=== PATIENT | male | born 1945 | race Caucasian/White ===

== ENCOUNTER 2017-07-17 10:53 | Emergency (ER) | payer MEDICARE, OTHER ==
[~2017-07-17] VITALS: Ht 160 cm; Wt 87.0 kg
[~2017-07-17 10:53] MED LIST: ATEN-51 PO; BENA20TA48 PO; CAR120SR PO; CHOLESTEROL MED PO; DOXA2TAB52 PO; IBUP800T25 PO
[2017-07-17 10:59] VITALS: Ht 160 cm; Wt 87.0 kg
[2017-07-17] MEDS ORDERED: IBUPROFEN 800 MG TAB PO ONE (12:00)
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
[2017-07-17] MEDS ORDERED: IBUP800T25 PO (13:17)
[2017-07-17] MEDS ORDERED: CYCL-319 PO (13:17)
[2017-07-17 13:42] VITALS: BP 163/97; PULSE 71; RESP 18; TEMP 97.5
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
== END 2017-07-17 13:45 | disposition home or self-care (01) ==
LOC: E/R 10:53
DX: S13.4XXA Sprain of ligaments of cervical spine, initial encounter (principal); S33.9XXA Sprain of unspecified parts of lumbar spine and pelvis, initial encounter; I10 Essential (primary) hypertension; R40.2142 Coma scale, eyes open, spontaneous, at arrival to emergency department; R40.2252 Coma scale, best verbal response, oriented, at arrival to emergency department; R40.2362 Coma scale, best motor response, obeys commands, at arrival to emergency department; R51 Headache; V49.49XA Driver injured in collision with other motor vehicles in traffic accident, initial encounter
CPT/HCPCS: 70450; 71010; 72100; 72125

== ENCOUNTER 2017-08-02 12:07 | Emergency (ER) | payer MEDICARE, OTHER ==
[~2017-08-02] VITALS: Ht 170.2 cm; Wt 85.0 kg
[~2017-08-02 12:07] MED LIST changes: +CYCL-319 PO
[2017-08-02 12:13] VITALS: Ht 170.2 cm; Wt 85.0 kg
[2017-08-02] MEDS ORDERED: DIPHTH/TET/ACEL PERTUSS (ADULT) 0.5 ML VIAL IM* ONE (12:30)
[2017-08-02] MEDS ORDERED: LIDOCAINE 1% (MDV) 20 ML INJ SC ONE (12:30)
[2017-08-02] MEDS ORDERED: IBUPROFEN 600 MG TAB PO ONE (12:30)
[2017-08-02] MEDS ORDERED: CEPH-443 PO (12:51)
[2017-08-02] MEDS ORDERED: IBUP-1542 PO (12:51)
--- NOTE | 2017-08-02 12:53 | ERD ---
ER Documentation Chief Complaint Date/Time DATE: 08/02/17 TIME: 12:51 Chief Complaint metal splinter underneath right 5th finger nail HPI 71-year-old male presents with a splinter under his right fifth finger nail from possibly a wire brush. Denies any restricted range of motion weakness or redness or fevers. His tetanus is not up-to-date. ROS All systems reviewed and are negative except as per history of present illness. Medications Home Meds Active Scripts Ibuprofen* (Motrin*) 600 Mg Tab, 600 MG PO Q6, #15 TAB Prov:RIVER DIAZ MD 08/02/17 Cephalexin* (Keflex*) 500 Mg Capsule, 500 MG PO QID for 5 Days, CAP Prov:RIVER DIAZ MD 08/02/17 Cyclobenzaprine Hcl* (Cyclobenzaprine Hcl*) 10 Mg Tablet, 10 MG PO TID, #15 TAB Prov:JOSEY NÚÑEZ 07/17/17 Ibuprofen* (Motrin*) 800 Mg Tab, 800 MG PO Q6H Y for PAIN AND OR ELEVATED TEMP, #30 TAB Prov:JOSEY NÚÑEZ 07/17/17 Ibuprofen* (Motrin*) 800 Mg Tab, 800 MG PO Q6H Y for PAIN AND OR ELEVATED TEMP, #30 TAB Prov:MARIA FERNANDA MIRELES MD 07/21/16 Reported Medications [Cholesterol Med] No Conflict Check, PO 05/27/16 Doxazosin* (CARDURA*) 2 Mg Tablet, 2 MG PO DAILY 02/08/13 Benazepril Hcl* (Benazepril Hcl*) 20 Mg Tablet, 20 MG PO DAILY 02/08/13 Atenolol* (Atenolol*) 25 Mg Tablet, 25 MG PO DAILY 02/08/13 Diltiazem Hcl (Diltiazem) 120 Mg Capsr, 120 MG PO DAILY 02/08/13 Allergies Allergies: Coded Allergies: No Known Allergies (Verified Allergy, Unknown, 11/08/13) PMhx/Soc History of Surgery: Yes (TURP, HERNIA) Anesthesia Reaction: No Hx Neurological Disorder: No Hx Respiratory Disorders: Yes (CHRONIC BRONCHITIS) Hx Cardiac Disorders: Yes (HTN, HIGH CHOLESTEROL) Hx Psychiatric Problems: No Hx Miscellaneous Medical Probl: No Hx Alcohol Use: No Hx Substance Use: No Hx Tobacco Use: Yes (1PPD) Smoking Status: Current every day smoker Physical Exam Vitals Vital Signs Date Time Temp Pulse Resp B/P Pulse Ox O2 Delivery O2 Flow Rate FiO2 08/02/17 12:13 98.3 71 16 144/71 95 Physical Exam Const: []Is alert, [id number]. Head: Atraumatic Eyes: Normal Conjunctiva ENT: Normal External Ears, Nose and Mouth. Neck: Full range of motion..~ No meningismus. Resp: Clear to auscultation bilaterally Cardio: Regular rate and rhythm, no murmurs Abd: Soft, non tender, non distended. Normal bowel sounds Skin: No petechiae or rashes Back: No midline or flank tenderness Ext: No cyanosis, or edema. There is a splinter underneath the right fifth finger now extending to the lunate. There is no erythema, discharge, deformities, restricted range of motion or weakness. Neur: Awake and alert Psych: Normal Mood and Affect Results 24 hrs Current Medications Medications (Trade) Dose Ordered Sig/Hannah Route PRN Reason Start Time Stop Time Status Last Admin Dose Admin Ibuprofen (Motrin) 600 mg ONCE ONCE PO 08/02/17 12:30 08/02/17 12:31 DC 08/02/17 12:32 Lidocaine (Xylocaine 1% (Mdv) 20 ml) 20 ml ONCE ONCE SC 08/02/17 12:30 08/02/17 12:31 DC Diphtheria/ Tetanus/Acell Pertussis (Adacel) 0.5 ml ONCE ONCE IM* 08/02/17 12:30 08/02/17 12:31 DC 08/02/17 12:43 Cephalexin (Keflex) 500 mg ONCE ONCE PO 08/02/17 13:00 08/02/17 13:01 Procedures/MDM Patient was given a tetanus booster. Patient was given ibuprofen and Keflex. Procedure note-right fifth digit was prepped with Betadine. 3 cc of lidocaine was used to perform a digital block. Using clamps splint was removed from underneath the right fifth fingernail. Patient tolerated procedure well and wound was dressed. Patient was discharged home instructions for wound check in 2 days, sooner for redness, fevers, new worsening symptoms. There is no current evidence of infection, appreciable retained foreign body, fracture, dislocation. Departure Diagnosis: Primary Impression: Splinter Additional Impression: Nail problem Condition: Stable Patient Instructions: Splinter Removal Additional Instructions: Recheck for redness, swelling, new symptoms. RIVER DIAZ MD Aug 02, 2017 12:53
[2017-08-02] MEDS ORDERED: CEPHALEXIN 500 MG CAP PO ONE (13:00)
== END 2017-08-02 13:19 | disposition home or self-care (01) ==
LOC: FTE 12:07
DX: S60.456A Superficial foreign body of right little finger, initial encounter (principal); I10 Essential (primary) hypertension; F17.210 Nicotine dependence, cigarettes, uncomplicated; W45.8XXA Other foreign body or object entering through skin, initial encounter; Y92.9 Unspecified place or not applicable; Z23 Encounter for immunization
CPT/HCPCS: 90471; 90715

== ENCOUNTER 2017-08-04 10:28 | Emergency (ER) | payer MEDICARE, OTHER ==
[~2017-08-04] VITALS: Ht 162.6 cm; Wt 80.0 kg
[~2017-08-04 10:28] MED LIST changes: +CEPH-443 PO; +IBUP-1542 PO
[2017-08-04 10:34] VITALS: Ht 162.6 cm; Wt 80.0 kg
== END 2017-08-04 12:06 | disposition left against medical advice (07) ==
LOC: FTE 10:28
DX: Z53.21 Procedure and treatment not carried out due to patient leaving prior to being seen by health care provider (principal)

== ENCOUNTER 2017-10-30 12:03 | Emergency (ER) | END 2017-10-30 18:00 | disposition home or self-care (01) ==

== ENCOUNTER 2019-08-17 07:23 | Day surgery (SDC) | payer MEDICARE, OTHER ==
[~2019-08-17] VITALS: Ht 170.2 cm; Wt 94.5 kg
[~2019-08-17 07:23] MED LIST changes: +ASA81; +BENA20TA4 PO; -BENA20TA48 PO; -CYCL-319 PO; +CYCL10TA7 PO; +IBUP-1561 PO; -IBUP800T25 PO; +IBUP800T48 PO
[2019-08-17 08:20] VITALS: BP 186/90; PULSE 58; RESP 18
[2019-08-17 09:01] VITALS: Ht 170.2 cm; Wt 94.5 kg
[2019-08-17] MEDS ORDERED: LIDOCAINE 2% (SDV) 5 ML INJ ONE (09:26)
[2019-08-17] MEDS ORDERED: PROPOFOL 40 ML ONE (09:26)
[2019-08-17 10:43] VITALS: BP 173/79; RESP 20
== END 2019-08-17 12:22 | disposition home or self-care (01) ==
LOC: GIL 07:23
PROVIDERS: ATTEND Internal Medicine Gastroenterology
DX: R19.4 Change in bowel habit (principal); K64.8 Other hemorrhoids; Z86.010 Personal history of colon polyps; I10 Essential (primary) hypertension; E78.5 Hyperlipidemia, unspecified